=== PATIENT | female | born 1965 | race African-American/Black ===

== ENCOUNTER 2021-04-04 09:09 | Emergency (ER) | payer BC ==
[2021-04-04 09:33] VITALS: TEMP 98.7; BMI 24.1
[2021-04-04] MEDS ORDERED: LACTATED RINGERS SOLUTION 1000 ML INFUS.BAG IV ONE (11:03)
[2021-04-04 11:30] LABS: BASO % 1.2 % (0-2.0); EOS % 1.1 % (0-4.5); HEMOGLOBIN 12.6 GM/dL (10.7-15.3); LYMPH % 27.8 % (8-40); MCH 28.8 pg (25.7-33.7); MEAN CELL VOLUME 84.5 fl (80-96); MEAN PLT VOLUME 6.9 fl (7.5-11.1); MONO % 8.2 % (3.8-10.2); NEUT % 61.7 % (42.8-82.8); PLATELET COUNT 717 10^3/uL (134-434); RBC 4.38 M/mm3 (3.60-5.2); RDW 13.3 % (11.6-15.6); WHITE BLOOD COUNT 5.4 K/mm3 (4.0-10.0)
[2021-04-04 11:53] LABS: CHLORIDE 107 mmol/L (98-107); SODIUM 140 mmol/L (136-145)
[2021-04-04 11:55] LABS: BLOOD UREA NITROGEN 8.3 mg/dL (7-18); CALCIUM 8.9 mg/dL (8.5-10.1)
[2021-04-04 11:56] LABS: ALBUMIN 3.2 g/dl (3.4-5.0); ANION GAP 5 MMOL/L (8-16); CO2 28 mmol/L (21-32); GLUCOSE,RANDOM 101 mg/dL (74-106); MAGNESIUM 2.4 mg/dL (1.8-2.4)
[2021-04-04 11:59] LABS: CREATININE 0.7 mg/dL (0.55-1.3); SGOT/AST 17 U/L (15-37); SGPT/ALT 21 U/L (13-61)
[2021-04-04 12:00] LABS: BILIRUBIN,TOTAL 0.3 mg/dL (0.2-1); TOT PROT 7.5 g/dl (6.4-8.2)
[2021-04-04 12:01] LABS: ALK PHOS 80 U/L (45-117)
[2021-04-04] MEDS ORDERED: CEFTRIAXONE 1,000 MG in DEXTROSE 5%-WATER - 50 ML IVPB ONE (12:38)
[2021-04-04 16:09] VITALS: BP 131/81; PULSE 106
== END 2021-04-04 16:09 | disposition home or self-care (01) ==
LOC: JER 09:09
DX: U07.1 COVID-19 (principal); J12.82 Pneumonia due to coronavirus disease 2019
CPT/HCPCS: 36415; 71045-TC-FY; 71275-TC; 76604; 80053; 82550; 82553; 83735; 84484; 85025; 85379; 87040; 93005; 93010; 93308; 99285-25; C9803; Q9967; U0003; U0005